=== PATIENT | female | born 1970 | race Caucasian/White ===

== ENCOUNTER → 2016-10-31 | Outpatient (CLI) | payer BC ==
--- NOTE | 2016-10-31 14:33 | MM ---
Reason for exam: screening (asymptomatic). Last mammogram was performed 1 year ago. History: Patient is postmenopausal and had first child at age 34. Taking estrogen beginning at age 39. Physical Findings: A clinical breast exam by your physician is recommended on an annual basis and results should be correlated with mammographic findings. MG Screening Mammo w CAD Bilateral CC and MLO view(s) were taken. Prior study comparison: October 29, 2015, bilateral MG screening mammo w CAD. October 01, 2014, right breast US breast RT. October 25, 2013, bilateral digital screening mammo w/CAD. The breast tissue is heterogeneously dense. This may lower the sensitivity of mammography. Finding: There is a 11 mm obscured round mass in the middle upper inner quadrant, anterior position of the left breast. There is a questionable new nodularity in the left breast. Developing asymmetry right posterior upper outer quadrant. ASSESSMENT: Incomplete: need additional imaging evaluation, BI-RAD 0 RECOMMENDATION: Special view mammogram of the right breast. Ultrasound of the left breast. [facility] will attempt to contact patient to return for supplemental views and ultrasound.
== END | disposition home or self-care (01) ==
LOC: RADMAMWWP 11:33
PROVIDERS: ATTEND Obstetrics & Gynecology
DX: Z12.31 Encounter for screening mammogram for malignant neoplasm of breast (principal); R92.2 Inconclusive mammogram

== ENCOUNTER → 2016-11-02 | Outpatient (CLI) | payer BC ==
--- NOTE | 2016-11-02 09:26 | MM ---
Reason for exam: additional evaluation requested from abnormal screening. Last mammogram was performed less than 1 month ago. History: Patient is postmenopausal and had first child at age 34. Taking estrogen beginning at age 39. Physical Findings: Nurse did not find any significant physical abnormalities on exam. MG Work Up Mamm w CAD RT CC and MLO view(s) were taken of the right breast. Prior study comparison: October 31, 2016, bilateral MG screening mammo w CAD. October 29, 2015, bilateral MG screening mammo w CAD. The breast tissue is heterogeneously dense. This may lower the sensitivity of mammography. Finding: There is a high density, indistinct round mass in the outer quadrant, anterior position of the right breast consistent with possible cyst on ultrasound. There is no discrete abnormality on compression upper outer quadrant. Ultrasound is recommended. These results were verbally communicated with the patient and result sheet given to the patient on 11/02/16. ASSESSMENT: Probably benign, BI-RAD 3 RECOMMENDATION: Follow-up diagnostic mammogram of the right breast in 6 months.
--- NOTE | 2016-11-02 09:28 | USB ---
Reason for exam: additional evaluation requested from abnormal screening. History: Patient is postmenopausal and had first child at age 34. Taking estrogen beginning at age 39. US Breast Workup Limited LT Left breast ultrasound demonstrates a 0.8 x 0.9 x 0.4cm oval, cystic lesion at 10 o'clock. These results were verbally communicated with the patient and result sheet given to the patient on 11/02/16. ASSESSMENT: Benign, BI-RAD 2 RECOMMENDATION: Follow-up diagnostic mammogram in 6 months. (right breast)
== END ==
LOC: RADMAMWWP 08:04
PROVIDERS: ATTEND Obstetrics & Gynecology
DX: R92.8 Other abnormal and inconclusive findings on diagnostic imaging of breast (principal)
CPT/HCPCS: 76642; G0206

== ENCOUNTER → 2017-11-17 | Outpatient (CLI) | payer BC ==
[2017-11-17 07:22] LABS: Basophils % (A) 0 %; Eosinophils # (A) 0.4 k/uL (0-0.7); Eosinophils % (A) 5 %; HCT 45.6 % (34.0-46.0); HGB 15.3 gm/dL (11.4-16.0); Lymphocytes # (A) 2.2 k/uL (1.0-4.8); Lymphocytes % (A) 30 %; MCH 29.2 pg (25.0-35.0); MCHC 33.6 g/dL (31.0-37.0); MCV 86.8 fL (80.0-100.0); Mean Platelet Volume 6.7; Monocytes # (A) 0.3 k/uL (0-1.0); Monocytes % (A) 5 %; Neutrophils # (A) 4.2 k/uL (1.3-7.7); Neutrophils % (A) 59 %; Platelet Count 326 k/uL (150-450); RBC 5.25 m/uL (3.80-5.40); RDW 13.2 % (11.5-15.5); WBC 7.2 k/uL (3.8-10.6)
[2017-11-17 07:48] LABS: ALT 32 U/L (9-52); AST 20 U/L (14-36); Albumin 4.5 g/dL (3.5-5.0); Alkaline Phosphatase 70 U/L (38-126); Anion Gap 15 mmol/L; Blood Urea Nitrogen 12 mg/dL (7-17); Calcium 9.5 mg/dL (8.4-10.2); Carbon Dioxide 26 mmol/L (22-30); Chloride 102 mmol/L (98-107); Cholesterol 245 mg/dL (<200); Glucose 105 mg/dL (74-99); HDL Cholesterol 53 mg/dL (40-60); LDL Cholesterol,Calculated 173 mg/dL (0-99); Potassium 3.9 mmol/L (3.5-5.1); Sodium 143 mmol/L (137-145); Total Bilirubin 0.4 mg/dL (0.2-1.3); Total Protein 7.9 g/dL (6.3-8.2); Triglycerides 93 mg/dL (<150)
== END | disposition home or self-care (01) ==
LOC: LABWHC1 07:09
PROVIDERS: ATTEND Family Medicine
DX: Z00.00 Encounter for general adult medical examination without abnormal findings (principal)
CPT/HCPCS: 36415; 80053; 80061; 84443; 85025

== ENCOUNTER → 2017-12-11 | Outpatient (CLI) | payer BC ==
--- NOTE | 2017-12-12 11:23 | MM ---
Reason for exam: screening (asymptomatic). Last mammogram was performed 7 months ago. History: Patient is postmenopausal and had first child at age 34. Taking estrogen for 6 years beginning at age 39. Taking other hormone for 6 months. Physical Findings: A clinical breast exam by your physician is recommended on an annual basis and results should be correlated with mammographic findings. MG Screening Mammo w CAD Bilateral CC and MLO view(s) were taken. Prior study comparison: May 09, 2017, right breast MG diagnostic mammo RT w CAD. November 02, 2016, right breast MG work up mamm w CAD RT. The breast tissue is heterogeneously dense. This may lower the sensitivity of mammography. No significant changes when compared with prior studies. ASSESSMENT: Benign, BI-RAD 2 RECOMMENDATION: Routine screening mammogram of both breasts in 1 year.
== END | disposition home or self-care (01) ==
LOC: RADMAMWWP 06:57
PROVIDERS: ATTEND Obstetrics & Gynecology
DX: Z12.31 Encounter for screening mammogram for malignant neoplasm of breast (principal)
CPT/HCPCS: 77067

== ENCOUNTER → 2018-12-12 | Outpatient (CLI) | payer BC ==
--- NOTE | 2018-12-14 14:33 | MM ---
Reason for exam: screening (asymptomatic). Last mammogram was performed 1 year ago. History: Patient is postmenopausal and had first child at age 34. Taking estrogen for 9 years beginning at age 39. Taking other hormone for 6 months. Physical Findings: A clinical breast exam by your physician is recommended on an annual basis and results should be correlated with mammographic findings. MG 3D Screening Mammo W/Cad Bilateral CC and MLO view(s) were taken. Prior study comparison: December 11, 2017, bilateral MG screening mammo w CAD. May 09, 2017, right breast MG diagnostic mammo RT w CAD. The breast tissue is extremely dense which could obscure a lesion on mammography. No significant changes when compared with prior studies. ASSESSMENT: Benign, BI-RAD 2 RECOMMENDATION: Routine screening mammogram of both breasts in 1 year.
== END | disposition home or self-care (01) ==
LOC: RADMAMWWP 14:59
PROVIDERS: ATTEND Obstetrics & Gynecology
DX: Z12.31 Encounter for screening mammogram for malignant neoplasm of breast (principal)
CPT/HCPCS: 77063; 77067

== ENCOUNTER 2019-06-03 11:33 | Observation (INO) | payer BC ==
--- NOTE | 2019-06-03 12:08 | ED ---
General Adult HPI - General Chief complaint: Chest Pain Stated complaint: chest pain/SOB/neck pain Time Seen by Provider: 06/03/19 11:40 Source: patient, RN notes reviewed, old records reviewed Mode of arrival: ambulatory Limitations: no limitations - History of Present Illness Initial comments: This a 48 her old female presents emergency Department complaining of left-sided chest pain that radiates to her neck and back. Patient states it also makes her short of breath. Patient states the pain started approximately an hour and half prior to arrival. Patient states she has no previous history of similar. Patient denies any history of high blood pressure diabetes or high cholesterol. Patient denies any smoking history. Patient states she does have a family history of heart disease with her father having a heart attack in his 50s. Patient states the pain started while she was just getting ready for work and she was under no distress or significant effort. Patient denies any leg swelling or calf tenderness. Patient denies abdominal pain patient is not vomiting diarrhea. - Related Data Home Medications Medication Instructions Recorded Confirmed Bio Te Pellets 1 implant SQ Q120D 06/03/19 06/03/19 Loratadine [Claritin] 10 mg PO HS 06/03/19 06/03/19 Progesterone, Micronized 100 mg PO HS 06/03/19 06/03/19 [Progesterone] Thyroid,Pork [Cavity Pump Operator Thyroid] 60 mg PO DAILY 06/03/19 06/03/19 Triamterene/Hydrochlorothiazid 0.5 tab PO HS 06/03/19 06/03/19 [Triamterene-Hctz 37.5-25 mg Tb] Allergies Allergy/AdvReac Type Severity Reaction Status Date / Time Sulfa (Sulfonamide Allergy Rash/Hives Verified 06/03/19 12:21 Antibiotics) tree nut Allergy Itching Verified 06/03/19 12:26 gluten AdvReac GI UPSET Verified 06/03/19 12:26 ALL SEAFOOD Allergy Itching Uncoded 06/03/19 12:26 FRUIT WITH CHAN Allergy Itching Uncoded 06/03/19 12:26 Review of Systems ROS Statement: Those systems with pertinent positive or pertinent negative responses have been documented in the HPI. ROS Other: All systems not noted in ROS Statement are negative. Past Medical History Additional Past Medical History / Comment(s): horomone replacemnt History of Any Multi-Drug Resistant Organisms: None Reported Past Surgical History: Appendectomy, Hysterectomy Past Psychological History: No Psychological Hx Reported Smoking Status: Never smoker Past Alcohol Use History: None Reported Past Drug Use History: None Reported General Exam - General Exam Comments Initial Comments: GENERAL: Patient is well-developed and well-nourished. Patient is nontoxic and well- hydrated and is in mild distress. ENT: Neck is soft and supple. No significant lymphadenopathy is noted. Oropharynx is clear. Moist mucous membranes. Neck has full range of motion without eliciting any pain. EYES: The sclera were anicteric and conjunctiva were pink and moist. Extraocular movements were intact and pupils were equal round and reactive to light. Eyeli ds were unremarkable. PULMONARY: Unlabored respirations. Good breath sounds bilaterally. No audible rales rhonchi or wheezing was noted. CARDIOVASCULAR: There is a regular rate and rhythm without any murmurs gallops or rubs. ABDOMEN: Soft and nontender with normal bowel sounds. No palpable organomegaly was noted. There is no palpable pulsatile mass. SKIN: Skin is clear with no lesions or rashes and otherwise unremarkable. NEUROLOGIC: Patient is alert and oriented x3. Cranial nerves II through XII are grossly intact. Motor and sensory are also intact. Normal speech, volume and content. Symmetrical smile. MUSCULOSKELETAL: Normal extremities with adequate strength and full range of motion. No lower extremity swelling or edema. No calf tenderness. LYMPHATICS: No significant lymphadenopathy is noted PSYCHIATRIC: Normal psychiatric evaluation. Limitations: no limitations Course Vital Signs 06/03/19 11:38 Temperature 98 F Pulse Rate 74 Respiratory 18 Rate Blood Pressure 144/77 O2 Sat by Pulse 99 Oximetry Medical Decision Making - Medical Decision Making EKG shows normal sinus rhythm at 77 bpm MA interval is 138 QRS is 82 QT interval 386 QTC is 436. Patient's EKG shows no ST segment elevation or depression or T wave abnormalities are noted. The. Chest x-ray shows no acute abnormalities. Patient received nitroglycerin paste and when she did the pain went away. I started the patient heparin because of her unstable angina picture. I spoke with [facility] is admitted the patient I consulted cardiac to continue heparin aspirin and Nitropaste on the floor. - Lab Data Result diagrams: 06/03/19 11:50 06/03/19 11:50 Lab Results 06/03/19 06/03/19 06/03/19 Range/Units 11:50 11:50 11:50 WBC 7.9 (3.8-10.6) k/uL RBC 5.27 (3.80-5.40) m/uL Hgb 15.6 (11.4-16.0) gm/dL Hct 46.4 H (34.0-46.0) % MCV 88.0 (80.0-100.0) fL MCH 29.6 (25.0-35.0) pg MCHC 33.7 (31.0-37.0) g/dL RDW 12.4 (11.5-15.5) % Plt Count 390 (150-450) k/uL Neutrophils % 59 % Lymphocytes % 30 % Monocytes % 5 % Eosinophils % 3 % Basophils % 1 % Neutrophils # 4.7 (1.3-7.7) k/uL Lymphocytes # 2.3 (1.0-4.8) k/uL Monocytes # 0.4 (0-1.0) k/uL Eosinophils # 0.3 (0-0.7) k/uL Basophils # 0.0 (0-0.2) k/uL PT 10.0 (9.0-12.0) sec INR 0.9 (<1.2) APTT 25.0 (22.0-30.0) sec Sodium 142 (137-145) mmol/L Potassium 4.0 (3.5-5.1) mmol/L Chloride 105 (98-107) mmol/L Carbon Dioxide 26 (22-30) mmol/L Anion Gap 11 mmol/L BUN 11 (7-17) mg/dL Creatinine 0.80 (0.52-1.04) mg/dL Est GFR (CKD-EPI)AfAm >90 (>60 ml/min/1.73 sqM) Est GFR (CKD-EPI)NonAf 89 (>60 ml/min/1.73 sqM) Glucose 98 (74-99) mg/dL POC Glucose (mg/dL) (75-99) mg/dL POC Glu Environmental Communications Specialist ID Calcium 10.0 (8.4-10.2) mg/dL Magnesium 2.0 (1.6-2.3) mg/dL Total Bilirubin 0.4 (0.2-1.3) mg/dL AST 22 (14-36) U/L ALT 25 (9-52) U/L Alkaline Phosphatase 86 (38-126) U/L Troponin I (0.000-0.034) ng/mL Total Protein 8.3 H (6.3-8.2) g/dL Albumin 4.5 (3.5-5.0) g/dL 06/03/19 06/03/19 Range/Units 11:50 13:12 WBC (3.8-10.6) k/uL RBC (3.80-5.40) m/uL Hgb (11.4-16.0) gm/dL Hct (34.0-46.0) % MCV (80.0-100.0) fL MCH (25.0-35.0) pg MCHC (31.0-37.0) g/dL RDW (11.5-15.5) % Plt Count (150-450) k/uL Neutrophils % % Lymphocytes % % Monocytes % % Eosinophils % % Basophils % % Neutrophils # (1.3-7.7) k/uL Lymphocytes # (1.0-4.8) k/uL Monocytes # (0-1.0) k/uL Eosinophils # (0-0.7) k/uL Basophils # (0-0.2) k/uL PT (9.0-12.0) sec INR (<1.2) APTT (22.0-30.0) sec Sodium (137-145) mmol/L Potassium (3.5-5.1) mmol/L Chloride (98-107) mmol/L Carbon Dioxide (22-30) mmol/L Anion Gap mmol/L BUN (7-17) mg/dL Creatinine (0.52-1.04) mg/dL Est GFR (CKD-EPI)AfAm (>60 ml/min/1.73 sqM) Est GFR (CKD-EPI)NonAf (>60 ml/min/1.73 sqM) Glucose (74-99) mg/dL POC Glucose (mg/dL) 87 (75-99) mg/dL POC Glu Environmental Communications Specialist MARTA Dianne Singh Calcium (8.4-10.2) mg/dL Magnesium (1.6-2.3) mg/dL Total Bilirubin (0.2-1.3) mg/dL AST (14-36) U/L ALT (9-52) U/L Alkaline Phosphatase (38-126) U/L Troponin I <0.012 (0.000-0.034) ng/mL Total Protein (6.3-8.2) g/dL Albumin (3.5-5.0) g/dL Critical Care Time Critical Care Time: Yes Total Critical Care Time: 35 Disposition Clinical Impression: Unstable angina pectoris Disposition: ADMITTED IP TO THIS HOSP Referrals: Scarlett Braxton MD [Primary Care Provider] - 1-2 days Time of Disposition: 13:37
[2019-06-03] MEDS ORDERED: NITROGLYCERIN OINT 1 INCH/GM PACKET TOPICAL STA (12:17)
[2019-06-03] MEDS ORDERED: ASPIRIN 81 MG PO STA (12:17)
[2019-06-03 12:40] LABS: Basophils % (A) 1 %; Eosinophils # (A) 0.3 k/uL (0-0.7); Eosinophils % (A) 3 %; HCT 46.4 % (34.0-46.0); HGB 15.6 gm/dL (11.4-16.0); Lymphocytes # (A) 2.3 k/uL (1.0-4.8); Lymphocytes % (A) 30 %; MCH 29.6 pg (25.0-35.0); MCHC 33.7 g/dL (31.0-37.0); Mean Platelet Volume 5.7; Monocytes # (A) 0.4 k/uL (0-1.0); Monocytes % (A) 5 %; Neutrophils # (A) 4.7 k/uL (1.3-7.7); Neutrophils % (A) 59 %; Platelet Count 390 k/uL (150-450); RBC 5.27 m/uL (3.80-5.40); RDW 12.4 % (11.5-15.5); WBC 7.9 k/uL (3.8-10.6)
[2019-06-03 12:53] LABS: ALT 25 U/L (9-52); AST 22 U/L (14-36); African American GFR (CKD) >90 (>60 ml/min/1.73 sqM); Albumin 4.5 g/dL (3.5-5.0); Alkaline Phosphatase 86 U/L (38-126); Anion Gap 11 mmol/L; Blood Urea Nitrogen 11 mg/dL (7-17); Carbon Dioxide 26 mmol/L (22-30); Chloride 105 mmol/L (98-107); Glucose 98 mg/dL (74-99); INR 0.9 (<1.2); Non-African American GFR(CKD) 89 (>60 ml/min/1.73 sqM); Sodium 142 mmol/L (137-145); Total Bilirubin 0.4 mg/dL (0.2-1.3); Total Protein 8.3 g/dL (6.3-8.2)
[2019-06-03 13:13] LABS: Glucose,Whole Blood 87 mg/dL (75-99)
--- NOTE | 2019-06-03 13:22 | XR ---
EXAMINATION TYPE: XR chest 2V DATE OF EXAM: 06/03/2019 COMPARISON: NONE HISTORY: Chest pain TECHNIQUE: Frontal and lateral views of the chest are obtained. FINDINGS: There is no focal air space opacity. No evidence for pneumothorax. No pleural effusion. The cardiac silhouette size is within normal limits. The osseous structures are grossly intact. IMPRESSION: 1. No acute cardiopulmonary process.
[2019-06-03] MEDS ORDERED: HEPARIN SODIUM,PORCINE 5,000 UNIT/ML 1 ML VIAL IV ONE (13:35)
[2019-06-03] MEDS ORDERED: NITROGLYCERIN SL TABS 0.4 MG TAB SUBLINGUAL PRN (13:37)
[2019-06-03] MEDS ORDERED: HEPARIN SOD,PORK IN 0.45% NACL 25,000 UNIT in 0.45% NACL 1 250ML.BAG IV SCH (13:45)
[2019-06-03 14:08] VITALS: RESP 16
--- NOTE | 2019-06-03 15:32 | CONS ---
CONSULTATION Mrs. Sapp is a 48-year-old female with a family history of premature coronary disease who presented with symptoms of chest discomfort. Her discomfort started today with some radiation to the neck and to the arm and she was mildly dyspneic. As the discomfort persisted for about an hour, she did not have any associated respirophasic pattern to it. She came into the emergency room and subsequently admitted. At the time my evaluation, she is pain free. She is usually relatively active physically, has no significant chest discomfort. No significant dyspnea, dizziness or palpitation. She has no PND, orthopnea. She has mild peripheral edema related to her hormone replacement. She has a family history of coronary artery disease. No history of hypertension, hyperlipidemia, or diabetes. She is a nonsmoker. MEDICATION: At home included Dyazide, thyroid supplement, progesterone, Claritin. REVIEW OF SYSTEMS: RESPIRATORY SYSTEM: She has no documented history of recent wheezing or cough. She had a prior history of allergic asthma. GI SYSTEM: No recent GI bleed. No peptic ulcer disease. SYSTEM: No dysuria or hematuria. NERVOUS SYSTEM: No stroke or seizure. PHYSICAL EXAMINATION: She is a 48-year-old female, alert, oriented, in no apparent distress. Blood pressure 114/60 with a heart rate in the 70s. HEAD: Normocephalic. EYES: Sclerae nonicteric. NECK: Good upstroke, no bruit, no jugular venous distention. CHEST: Clear to auscultation. HEART: Regular rate and rhythm S1, S2. No S3. No S4. No murmur or rub. ABDOMEN: Soft, nontender, positive bowel sounds, no organomegaly. EXTREMITIES: No edema, intact distal pulses. LAB DATA: Lab data revealed the troponin less than 0.012 for 1 sample. BUN and creatinine of 11 and 0.8, potassium 4.0, hemoglobin of 15.6. EKG revealed a sinus mechanism, normal axis and intervals, normal electrocardiogram. IMPRESSION: 1. Chest discomfort of unclear etiology, has some atypical features for ischemic heart disease. No evidence for acute coronary syndrome so far. 2. Family history of premature coronary artery disease. RECOMMENDATION: I will obtain serial enzymes and an echocardiogram. There is no evidence of inducible ischemia. Will proceed with a stress test tomorrow. Otherwise, if there is enzymatic changes or persistent symptoms, coronary angiography will be needed. Those final recommendation were discussed with the patient and her who are in full understanding and agreement. Thank you for this consult. Will follow with you. MMODL / IJN: [id number] /
[2019-06-03] MEDS: NITROGLYCERIN OINT 1 INCH/GM PACKET TOPICAL SCH ×2 (16:52→23:00)
[2019-06-03] MEDS ORDERED: ACETAMINOPHEN TAB 325 MG TAB PO PRN (19:49)
--- NOTE | 2019-06-03 20:41 | HP ---
HISTORY AND PHYSICAL DATE OF SERVICE: 06/03/2019. CHIEF COMPLAINT: Chest pain. HISTORY OF PRESENT ILLNESS: This 48-year-old woman with a past medical history of , history of appendectomy, being followed by Dr. Braxtno in the outpatient setting. The patient has had chest pain. The pain is felt in the left side of the chest, history of radiating to the left shoulder and left neck. Patient came to [facility]. The pain was mild to moderate intensity associated with shortness of breath. There is not any other associated symptoms or aggravating or alleviating factors. The EKG showed some nonspecific ST-T changes and the troponins are negative. Patient was admitted to the hospital for further evaluation and treatment. Cardiology following the patient closely and planning possible stress test in the morning. There is no history of fever, rigors or chills. No history of headache, loss of consciousness, or seizures. PAST MEDICAL HISTORY: History of hormone replacement, history of appendectomy, hysterectomy. MEDICATIONS: Prior to admission include home medications are: 1. Triamterene hydrochlorothiazide 37/12.5 mg q.h.s. 2. Thyroid pork. 3. Micronized progesterone. 4. Claritin 10 mg p.o. daily. ALLERGIES: SULFA, TREE NUTS, GLUTEN, ALL SEAFOOD, FOODS WITH PITS. FAMILY HISTORY: History of diabetes and myocardial infarction, testicular cancer. SOCIAL HISTORY: No history of smoking. No history of alcohol. REVIEW OF SYSTEMS: ENT: No diminished vision. No diminished hearing. CARDIOVASCULAR system as mentioned earlier. RESPIRATORY: As mentioned earlier. GI no nausea or vomiting. no dysuria or hematuria. NERVOUS SYSTEMS: No numbness or weakness. ALLERGIES/IMMUNOLOGY: No asthma or hayfever. MUSCULOSKELETAL as mentioned earlier. HEMATOLOGY/ONCOLOGY: No history of anemia. ENDOCRINE: Hypothyroidism. CONSTITUTIONAL: As mentioned earlier. DERMATOLOGY: Negative. RHEUMATOLOGY negative. PSYCHIATRY as mentioned. PHYSICAL EXAMINATION: Alert and oriented times three. Pulse 73, blood pressure 111/64. Respirations 16. Temperature 98 degrees, pulse ox 97% on room air. HEENT: Conjunctivae normal. Oral mucosa moist. NECK is no jugular venous distention. No carotid bruit. No lymph node enlargement. Cardiovascular system: S1, S2. No S3, no S4. RESPIRATIONS: Breath sounds diminished in the bases. No rhonchi. No crackles. ABDOMEN: Soft, nontender. No mass palpable. LEGS: No edema. No swelling. NERVOUS SYSTEM: Higher functions as mentioned earlier. Moves all four limbs. No focal motor or sensory deficits. LYMPHATICS: No lymph nodes palpable in the neck, axillae or groin. SKIN: No ulcers, rash or bleeding. JOINTS: No active deforming arthropathy. LABS: CBC within normal limits and CMP showed protein of 8.3. ASSESSMENT: 1. Chest pain for evaluation, possible unstable angina. 2. Family history of coronary disease. 3. History of appendectomy. 4. History of hysterectomy. RECOMMENDATIONS DISCUSSION: In this 48-year-old woman who presented with multiple medical issues, at this time, I recommend to continue the current medications. Rule out myocardial infarction/unstable angina protocol. Otherwise, cardiac stress test. Follow closely with Cardiology. We will check a fasting lipid panel also. Prognosis guarded because of multiple complex medical issues. Further recommendations to follow. A copy of dictation being forwarded to Dr. Braxton who is the primary physician. MMCLEOL / IJN: [id number] / MARY
[2019-06-03] MEDS ORDERED: LORATADINE 10 MG TAB PO SCH (21:00)
[2019-06-03] MEDS ORDERED: TRIAMTERENE-HCTZ 37.5-25MG 1 EACH TAB PO SCH (21:00)
[2019-06-04] MEDS ORDERED: ACETAMINOPHEN TAB 325 MG TAB ONE (03:21)
[2019-06-04] MEDS: NITROGLYCERIN OINT 1 INCH/GM PACKET TOPICAL SCH (05:37)
[2019-06-04 07:15] LABS: Cholesterol 215 mg/dL (<200); HDL Cholesterol 48 mg/dL (40-60); LDL Cholesterol,Calculated 143 mg/dL (0-99); Triglycerides 121 mg/dL (<150)
--- NOTE | 2019-06-04 08:40 | PN ---
PROGRESS NOTE Mrs. Sapp is a 48-year-old female with no prior cardiac history who presented with symptoms of chest discomfort of unclear etiology. She is doing well this morning. She has no further chest pain. Her breathing is stable. She has been ambulating without difficulty. Denying any dizziness. No palpitation. She denies any nausea. On the monitor, she continues to be in sinus mechanism with no evidence of tachycardia or bradycardia. She continued to be on aspirin, heparin and nitrate. PHYSICAL EXAMINATION: Blood pressure running in the 90s with the heart rate in the 70s. LUNGS: Clear. HEART: Regular rate and rhythm. S1, S2. No S3. No rub. ABDOMEN: Soft, nontender. Positive bowel sounds. No organomegaly. EXTREMITIES: No edema. LAB DATA: Lab data revealed a troponin less than 0.012 for 3 samples. EKG revealed no acute changes. IMPRESSION: Chest discomfort of unclear etiology, has atypical features for ischemic heart disease. RECOMMENDATION: I will stop her IV heparin and her nitrate. Proceed with a stress echocardiogram today. If there is no evidence of stress-induced ischemia, then no further cardiac workup will be needed. MMODL / IJN: [id number] /
--- NOTE | 2019-06-04 08:55 | ECHOF ---
Referral Reason:chest pain MEASUREMENTS -------- HEIGHT: 165.1 cm WEIGHT: 89.8 kg BP: RVIDd: 3.1 cm (< 3.3) IVSd: 0.8 cm (0.6 - 1.1) LVIDd: 4.1 cm (3.9 - 5.3) LVPWd: 1.0 cm (0.6 - 1.1) IVSs: 1.5 cm LVIDs: 2.3 cm LVPWs: 1.6 cm LAESV Index (A-L): 7.84 ml/m Ao Diam: 2.5 cm (2.0 - 3.7) AV Cusp: 1.6 cm (1.5 - 2.6) LA Diam: 2.6 cm (2.7 - 3.8) MV EXCURSION: 12.039 mm (> 18.000) MV EF SLOPE: 72 mm/s (70 - 150) EPSS: 0.6 cm MV E Dave: 0.66 m/s MV DecT: 296 ms MV A Dave: 0.71 m/s MV E/A Ratio: 0.92 FINDINGS -------- Sinus rhythm. This was a technically good study. The left ventricular size is normal. There is borderline concentric left ventricular hypertrophy. Overall left ventricular systolic function is normal with, an EF between 55 - 60 %. The diastolic filling pattern is normal for the age of the patient 7.74. The right ventricle is normal in size. The left atrial size is normal. Normal LA size by volume 22+/-6 ml/m2. The right atrial size is normal. The aortic valve is trileaflet and appears structurally normal. The mitral valve is normal. There is trace mitral regurgitation. The tricuspid valve appears structurally normal. Trace tricuspid regurgitation present. Right jessie tricular systolic pressure is normal at < 35 mmHg. There is no pulmonic regurgitation present. The aortic root size is normal. Normal inferior vena cava with normal inspiratory collapse consistent with estimated right atrial pre ssure of 5 mmHg. There is no pericardial effusion. CONCLUSIONS -------- 1. Sinus rhythm. 2. This was a technically good study. 3. The left ventricular size is normal. 4. There is borderline concentric left ventricular hypertrophy. 5. Overall left ventricular systolic function is normal with, an EF between 55 - 60 %. 6. The diastolic filling pattern is normal for the age of the patient 7.74 7. The right ventricle is normal in size. 8. The left atrial size is normal. 9. Normal LA size by volume 22+/-6 ml/m2. 10. The right atrial size is normal. 11. The aortic valve is trileaflet and appears structurally normal. 12. The mitral valve is normal. 13. There is trace mitral regurgitation. 14. The tricuspid valve appears structurally normal. 15. Trace tricuspid regurgitation present. 16. Right ventricular systolic pressure is normal at < 35 mmHg. 17. There is no pulmonic regurgitation present. 18. The aortic root size is normal. 19. Normal inferior vena cava with normal inspiratory collapse consistent with estimated right atrial pressure of 5 mmHg. 20. There is no pericardial effusion. VP OF GLOBAL MARKETING: Coty Meneses RDCS
[2019-06-04] MEDS ORDERED: ASPIRIN 81 MG PO SCH (09:00)
[2019-06-04] MEDS ORDERED: ASPIRIN 325 MG TAB PO SCH (09:00)
[2019-06-04] MEDS ORDERED: THYROID, PORK 30 MG TAB PO SCH (09:00)
[2019-06-04 10:32] LABS: Glucose,Whole Blood 89 mg/dL (75-99)
[2019-06-04] MEDS ORDERED: SODIUM CHLORIDE IV SCH (10:45)
[2019-06-04] MEDS ORDERED: DEXTROSE IV SCH (10:45)
[2019-06-04] MEDS ORDERED: WATER IV SCH (10:45)
[2019-06-04 11:00] VITALS: BP 124/80; PULSE 71; TEMP 98.2
[2019-06-04] MEDS ORDERED: DEXTROSE 10 % IN WATER 250 ML IV ONE (11:00)
--- NOTE | 2019-06-04 18:25 | ECHOS ---
STRESS ECHOCARDIOGRAM INDICATIONS: Chest pain. MEDICATIONS: HRT, ATHLETIC EVENTS SCORER thyroid BASELINE HEART RATE: 72 BASELINE BLOOD PRESSURE: 131/88 MAXIMUM HEART RATE: 160 MAXIMUM BLOOD PRESSURE: 188/82 85% MPHR: 148 100% MPHR: 174 METS: 9.3 MAXIMUM STAGE REACHED: II TOTAL EXERCISE TIME: 7:50 CLINICAL INFORMATION: Baseline EKG shows sinus rhythm, normal axis, nonspecific ST-T wave changes. Patient exercised on Vu protocol for a total of 7 minutes and 50 seconds, achieving 9 METS, 92% of predicted maximal heart rate without chest pain or diagnostic ST-segment depression. Baseline echo shows normal left ventricular size, wall motion, systolic function. Post exercise there is normal hyperdynamic response of all segments of myocardium noted. CONCLUSIONS: 1. Above-average exercise tolerance. 2. Negative stress test by EKG criteria. 3. Negative stress echo. ELIASL / IJN: [id number] /
--- NOTE | 2019-06-04 21:31 | DS ---
DISCHARGE SUMMARY DATE OF SERVICE: 06/04/2019. FINAL DIAGNOSES: 1. Chest pain, possibly musculoskeletal. 2. Family history of coronary artery disease. 3. Hyperlipidemia. 4. History of appendectomy. 5. History of hysterectomy. DISCHARGE DISPOSITION: The patient is being discharged in stable condition with guarded prognosis. HISTORY OF PRESENT ILLNESS: This 48-year-old woman with a past medical history of multiple medical problems being followed by Dr. Braxton in the outpatient setting was admitted with chest pain. Myocardial infarction ruled out. Patient underwent a stress test which was reported as negative. Official report is pending at this time and Cardiology cleared the patient for discharge. A 2D echo with Doppler was also done which showed ejection fraction about 50-60 percent. The patient also had hyperlipidemia. Recommend the patient on a low-fat diet cardiac diet and repeat lipid panel testing with Dr. Braxton and if the cholesterol is still high, initiate possibly combination of Lipitor and baby aspirin. The cholesterol is fasting cholesterol 215 and LDL was 143 with triglycerides 121 and HDL 48. On exam, vitals signs are stable. Cardiovascular: S1, S2. Abdomen soft. Nervous system: No focal deficits. DISCHARGE ADVICE AND MEDICATIONS: 1. Discharge diet is cardiac low-fat. 2. Activity limited until follow up. 3. Follow up with Dr. Hamm as advised. 4. Follow up with Dr. Braxton in 2-3 days. DISCHARGE MEDICATIONS: 1. Claritin 10 mg q.h.s. 2. Thyroid pork 60 mg p.o. daily. 3. Progesterone 100 mg q.h.s. 4. Triamterene hydrochlorothiazide 1.5 mg q.h.s. 5. Tylenol 650 q.6h p.r.n. Once again, the patient is being discharged in a stable condition with guarded prognosis. Recommend follow up with thyroid function tests in the outpatient setting. MMODL / IJN: [id number] /
== END 2019-06-04 14:48 | disposition home or self-care (01) ==
LOC: EC 11:33 → 3SCARD 13:37
PROVIDERS: ADMIT Hospitalist; ATTEND Hospitalist
DX: I20.0 Unstable angina (principal); Z82.49 Family history of ischemic heart disease and other diseases of the circulatory system; E78.5 Hyperlipidemia, unspecified; Z83.3 Family history of diabetes mellitus; Z80.43 Family history of malignant neoplasm of testis; Z90.710 Acquired absence of both cervix and uterus; Z79.890 Hormone replacement therapy; Z79.899 Other long term (current) drug therapy; Z91.018 Allergy to other foods; Z91.013 Allergy to seafood; Z88.2 Allergy status to sulfonamides
CPT/HCPCS: 96366 ×2; 93005 ×2; 96376; 96365; 99291; 36415; 93306; 93351; 80061; 80053; 83735; 84484; 85025; 85610; 85730 ×2; 71046; G0378 ×2; J1644 ×2

== ENCOUNTER → 2020-01-16 | Outpatient (CLI) | payer BC ==
[2020-01-16 08:59] LABS: Basophils % (A) 1 %; Eosinophils # (A) 0.3 k/uL (0-0.7); Eosinophils % (A) 4 %; HCT 45.8 % (34.0-46.0); HGB 15.5 gm/dL (11.4-16.0); Lymphocytes # (A) 1.9 k/uL (1.0-4.8); Lymphocytes % (A) 25 %; MCH 30.1 pg (25.0-35.0); MCV 88.7 fL (80.0-100.0); Mean Platelet Volume 6.7; Monocytes # (A) 0.3 k/uL (0-1.0); Monocytes % (A) 4 %; Neutrophils % (A) 65 %; Platelet Count 316 k/uL (150-450); RBC 5.16 m/uL (3.80-5.40); RDW 13.7 % (11.5-15.5); WBC 7.7 k/uL (3.8-10.6)
[2020-01-16 16:49] LABS: African American GFR (CKD) 88.2 (60.0-200.0); Albumin 4.3 g/dL (3.80-4.90); Albumin/Globulin Ratio 1.48 (1.60-3.17); Anion Gap 7.9 mmol/L (4.00-12.00); BUN/Creat Ratio 15.56 Ratio (12.00-20.00); Calcium 9.2 mg/dL (8.7-10.3); Carbon Dioxide 28.1 mmol/L (21.6-31.8); Chol/HDL Ratio 4.24; Globulin 2.9 g/dL (1.6-3.3); LDL Cholesterol,Calculated 164.4 mg/dL (0.0-131.0); Non-African American GFR(CKD) 76.1 (60.0-200.0); Total Bilirubin 0.4 mg/dL (0.3-1.2); Total Protein 7.2 g/dL (6.2-8.2); VLDL Calculation 23.6 mg/dL (5.00-40.00)
== END | disposition home or self-care (01) ==
LOC: LABWHC1 07:25
PROVIDERS: ATTEND Family Medicine
DX: E78.5 Hyperlipidemia, unspecified (principal)
CPT/HCPCS: 36415; 80053; 80061; 84443; 85025

== ENCOUNTER → 2020-01-16 | Outpatient (CLI) | payer BC ==
--- NOTE | 2020-01-17 08:56 | MM ---
Reason for exam: screening (asymptomatic). Last mammogram was performed 1 year and 1 month ago. History: Patient is postmenopausal and had first child at age 34. Taking estrogen for 9 years beginning at age 39. Taking other hormone for 6 months. Physical Findings: A clinical breast exam by your physician is recommended on an annual basis and results should be correlated with mammographic findings. MG 3D Screening Mammo W/Cad Bilateral CC and MLO view(s) were taken. Prior study comparison: December 12, 2018, bilateral MG 3d screening mammo w/cad. December 11, 2017, bilateral MG screening mammo w CAD. The breast tissue is heterogeneously dense. This may lower the sensitivity of mammography. A 7mm medial left breast nodule is circumscribed and previously measured 5mm. Indolent behavior and circumscribed margins suggests a benign etiology. ASSESSMENT: Probably benign, BI-RAD 3 RECOMMENDATION: Follow-up diagnostic mammogram of the left breast in 6 months.
== END | disposition home or self-care (01) ==
LOC: RADMAMWWP 07:03
PROVIDERS: ATTEND Obstetrics & Gynecology
DX: Z12.31 Encounter for screening mammogram for malignant neoplasm of breast (principal)
CPT/HCPCS: 77063; 77067

== ENCOUNTER → 2020-05-15 | Outpatient (CLI) | payer BC ==
--- NOTE | 2020-05-15 08:01 | US ---
EXAMINATION TYPE: US abdomen complete DATE OF EXAM: 05/15/2020 COMPARISON: NONE CLINICAL HISTORY: R10.11 Right upper quadrant pain. EXAM MEASUREMENTS: Liver Length: 16.6 cm Gallbladder Wall: .2 cm CBD: .5 cm Spleen: 10.5 cm Right Kidney: 10.9 x 3.5 x 4.4 cm Left Kidney: 11.1 x 4.3 x 4.6 cm Pancreas: wnl Liver: wnl liver is enlarged compatible with hepatomegaly. Gallbladder: No stones seen Evidence for sonographic Dukes's sign: No CBD: wnl Spleen: wnl Right Kidney: wnl Left Kidney: wnl Upper IVC: wnl Abd Aorta: wnl IMPRESSION: 1. Hepatomegaly. 2. Abdomen ultrasound is otherwise normal
== END | disposition home or self-care (01) ==
LOC: RADUSWWP 07:32
PROVIDERS: ATTEND Family Medicine
DX: R16.0 Hepatomegaly, not elsewhere classified (principal); R19.7 Diarrhea, unspecified
CPT/HCPCS: 76700; 83630; 87045; 87046; 87328; 87329

== ENCOUNTER → 2020-05-26 | Outpatient (CLI) | payer BC ==
--- NOTE | 2020-05-27 21:43 | CT ---
EXAMINATION TYPE: CT abdomen w con DATE OF EXAM: 05/26/2020 COMPARISON: 08/21/2012 INDICATION: Upper abdominal pain, diarrhea, abnormal blood work and hepatomegaly. DLP: 870.4 mGycm, Automated exposure control for dose reduction was used. CONTRAST: 100ml mL of Isovue 300. Study performed with Oral Contrast TECHNIQUE: Axial images were obtained from above the diaphragm to the iliac crests in the axial plane at 5 mm thick sections. Reconstructed images are reviewed on the computer in the coronal plane. FINDINGS: Limited CT sections are obtained the lung bases. The lung bases are clear. CT ABDOMEN: Liver: There is a 2.2 cm hypodensity with irregular margins in the lateral right lobe of liver. Serie s 3 image 18. This is poorly visualized on delayed images. This may be a hemangioma among other etiol ogies. This had a more typical appearance on the prior study hepatomegaly is present with a craniocau nancy dimension of 18.9 cm. Normal less than 15.5 cm. This may be partially due to a Chiki's lobe. Spleen: Normal Pancreas: Normal Adrenal glands: The adrenal glands are normal. Gallbladder: Normal Kidneys: No masses are evident. No hydronephrosis is present. No cysts are present. Delayed images were obtained through the kidneys, which remain unremarkable. Aorta: Normal Inferior vena cava: Normal. Loops of bowel within the abdomen and pelvis are normal. Some fecal debris is within the colon. Th ere are loops of bowel which are incompletely distended or lack oral contrast limiting their evaluati on. IMPRESSIONS: 1. Probable hemangioma within the right lobe liver. 2. Hepatomegaly
== END | disposition home or self-care (01) ==
LOC: RADCTMAIN 18:23
PROVIDERS: ATTEND Family Medicine
DX: R16.0 Hepatomegaly, not elsewhere classified (principal)
CPT/HCPCS: 74160; Q9967

== ENCOUNTER 2020-07-01 07:37 | Day surgery (SDC) | payer BC ==
[2020-06-29 15:07] VITALS: BMI 31.1
[~2020-07-01 07:37] MED LIST: DEXAMETHASONE SOD PHOSPHATE 4 MG/ML 1 ML VIAL IV ONE; HYDROmorphone 0.5 MG/0.5 ML SYRINGE IVP PRN; LACTATED RINGERS 1,000 ML IV SCH; LIDOCAINE 1% (10MG/ML) FOR IV START INTRADERMA PRN; MIDAZOLAM 2 MG/2 ML VIAL IV PRN
[2020-07-01] MEDS ORDERED: LACTATED RINGERS 1,000 ML IV ONE (07:55)
[2020-07-01 07:56] VITALS: TEMP 97.8
[2020-07-01 08:07] LABS: Glucose,Whole Blood 87 mg/dL (75-99)
[2020-07-01] MEDS ORDERED: MIDAZOLAM 2 MG/2 ML VIAL ONE (08:44)
[2020-07-01] MEDS ORDERED: fentaNYL (PF) 50 MCG/ML 2 ML AMP ONE (08:44)
[2020-07-01] MEDS ORDERED: LIDOCAINE 1% INJ 10MG/ML (20 ML MDV) ONE (08:44)
[2020-07-01] MEDS ORDERED: PROPOFOL 10 MG/ML 50 ML VIAL IV ONE (08:44)
--- NOTE | 2020-07-01 09:05 | P.PCN ---
Date of Procedure: 07/01/20 Procedure(s) Performed: Brief history: Patient is a pleasant 49-year-old white female scheduled for an elective upper endoscopy as well as colonoscopy as a part of evaluation of intermittent episodes of abdominal pain, abdominal bloating and change in bowel habits for the last few months duration. Procedure performed: Esophagogastroduodenoscopy with biopsy Colonoscopy with biopsy Preoperative diagnosis: Abdominal pain and change in bowel habits of 3 months duration. Anesthesia: [facility] Procedure: After informed consent was obtained from the patient was brought into the endoscopy unit and IV sedation was administered by anesthesia under continuous monitoring. Initially upper endoscopy was done. The Olympus GF 160 video endoscope was inserted inserted into the mouth and esophagus intubated without any difficulty and was gradually advanced into the stomach and duodenum and carefully examined. The bulb and second part of the duodenum appeared normal. Biopsies were done from the duodenum to rule out celiac disease. The scope was then withdrawn into the stomach adequately insufflated with air and upon careful examination the antrum mild gastritis and biopsies were done from this area. The body, cardia and fundus appeared normal. The scope was then withdrawn into the esophagus. The GE junction was located at 40 cm to the incisors. It appeared regular with a conventional erythema consistent with LA grade a reflux esophagitis. Rest of the esophagus appeared normal. Patient tolerated the procedure well. At this time the patient continued to remain sedation. Initial digital rectal examination was normal. Olympus CF 160 video colonoscope was then inserted into the rectum and gradually advanced to the cecum without any difficulty. Careful examination was performed as the scope was gradually being withdrawn. The prep was excellent. The cecum, ascending colon, transverse colon, descending colon, sigmoid colon and rectum appeared normal. Status post random biopsies to rule out collagenous/microscopic colitis. Retroflexion was performed in the rectum and no lesions were noted. Patient tolerated the procedure well. Impression: 1.Upper endoscopy revealed mild antral gastritis and LA grade A reflux esophagitis 2.Colonoscopy was essentially within normal limits with no evidence of colitis or colorectal neoplasia Recommendations: Findings of this examination were discussed with the patient as well as Her family. She was advised to follow with the biopsy results. He was advised to follow up in office in 2-3 weeks.
[2020-07-01 09:33] VITALS: BP 132/78; PULSE 70; RESP 20
== END 2020-07-01 10:20 | disposition home or self-care (01) ==
LOC: ORWHC2ENDO 07:37
PROVIDERS: ATTEND Internal Medicine Gastroenterology
DX: K29.70 Gastritis, unspecified, without bleeding (principal); K21.00 Gastro-esophageal reflux disease with esophagitis, without bleeding; R19.4 Change in bowel habit; Z91.040 Latex allergy status; Z88.2 Allergy status to sulfonamides; E78.5 Hyperlipidemia, unspecified; E07.9 Disorder of thyroid, unspecified; Z79.890 Hormone replacement therapy; Z79.899 Other long term (current) drug therapy; Z98.891 History of uterine scar from previous surgery; Z90.710 Acquired absence of both cervix and uterus; Z90.49 Acquired absence of other specified parts of digestive tract; Z98.890 Other specified postprocedural states
CPT/HCPCS: 88305; 45380; 43239; J2250; J2001; J3010; J2704

== ENCOUNTER → 2020-07-08 | Outpatient (CLI) | payer BC ==
--- NOTE | 2020-07-08 14:26 | MR ---
MR liver with and without contrast HISTORY: Abnormal CT, liver disease, K 76.9 Multiplanar multisequence and postcontrast images obtained through the liver following 9 cc Gadavist IV. Correlation to prior CT 05/26/2020 The lesion identified on CT scan within the right lobe of the liver shows T1 low, T2 bright signal, l esion measures approximately 2 cm. Centripetal rest of enhancement is noted on the questionable postc ontrast images, and enhancement with initial nodular appearance. The liver is enlarged and shows sign al drop on out of phase images. There is no dilated intra or extrahepatic biliary ducts. There is extensive motion on the exam. Hiatal hernia is noted incidentally. There is no evident pleur al effusion or ascites. Pancreas shows no mass. No retroperitoneal adenopathy. Aorta shows normal shimon iber. Kidneys are unremarkable, adrenal glands are normal. Spleen is not enlarged. There is no eviden t bowel obstruction. IMPRESSION: Findings consistent with hemangioma within the liver. Hepatic steatosis, hepatomegaly. Hi atal hernia.
== END | disposition home or self-care (01) ==
LOC: RADMRIMAIN 08:44
PROVIDERS: ATTEND Internal Medicine Gastroenterology
DX: K76.0 Fatty (change of) liver, not elsewhere classified (principal); K44.9 Diaphragmatic hernia without obstruction or gangrene
CPT/HCPCS: 74183; A9585

== ENCOUNTER → 2020-07-23 | Outpatient (CLI) | payer BC ==
--- NOTE | 2020-07-23 11:33 | MM ---
Reason for exam: follow-up at short interval from prior study. Last mammogram was performed 6 months ago. History: Patient is postmenopausal, history of other cancer, and had first child at age 34. Family history of breast cancer in maternal aunt at age 50 and breast cancer in paternal cousin at age 9. Taking estrogen for 9 years beginning at age 39. Taking other hormone for 6 months. Physical Findings: Nurse did not find any significant physical abnormalities on exam. MG 3D Diag Mammo W/Cad LT CC and MLO view(s) were taken of the left breast. Prior study comparison: January 16, 2020, bilateral MG 3d screening mammo w/cad. December 12, 2018, bilateral MG 3d screening mammo w/cad. The breast tissue is heterogeneously dense. This may lower the sensitivity of mammography. There is no discrete abnormality. Skin lesion posterior upper inner aspect. These results were verbally communicated with the patient and result sheet given to the patient on 07/23/20. ASSESSMENT: Negative, BI-RAD 1 RECOMMENDATION: Return to routine screening mammogram schedule for both breasts. Back on schedule.
== END | disposition home or self-care (01) ==
LOC: RADMAMWWP 10:46
PROVIDERS: ATTEND Obstetrics & Gynecology
DX: R92.8 Other abnormal and inconclusive findings on diagnostic imaging of breast (principal)
CPT/HCPCS: 77061; 77065

== ENCOUNTER → 2021-01-18 | Outpatient (CLI) | payer BC ==
--- NOTE | 2021-01-19 13:31 | MM ---
Reason for exam: screening (asymptomatic). Last mammogram was performed 6 months ago. History: Patient is postmenopausal, history of other cancer, and had first child at age 34. Family history of breast cancer in maternal aunt at age 50 and breast cancer in paternal cousin at age 9. Took hormonal contraceptives for 10 years. Taking estrogen for 9 years beginning at age 39. Taking progesterone. Taking other hormone for 6 months. Physical Findings: A clinical breast exam by your physician is recommended on an annual basis and results should be correlated with mammographic findings. MG 3D Screening Mammo W/Cad Bilateral CC and MLO view(s) were taken. Prior study comparison: July 23, 2020, left breast MG 3d diag mammo w/cad LT. January 16, 2020, bilateral MG 3d screening mammo w/cad. The breast tissue is heterogeneously dense. This may lower the sensitivity of mammography. ASSESSMENT: Negative, BI-RAD 1 RECOMMENDATION: Routine screening mammogram of both breasts in 1 year.
== END | disposition home or self-care (01) ==
LOC: RADMAMWWP 07:19
PROVIDERS: ATTEND Obstetrics & Gynecology
DX: Z12.31 Encounter for screening mammogram for malignant neoplasm of breast (principal)
CPT/HCPCS: 77063; 77067

== ENCOUNTER → 2022-01-19 | Outpatient (CLI) | payer BC ==
--- NOTE | 2022-01-20 07:51 | MM ---
Reason for Exam: Screening (asymptomatic). Last screening mammogram was performed 12 month(s) ago. Patient History: Menarche at age 14. First Full-Term at age 34. Late child-bearing (after 30). Left ovary removed at age 39. Right ovary removed at age 39. Hysterectomy at age 39. Postmenopausal. Other cancer. Currently using Estrogen, beginning at age 39 for 9 years. Currently using Progesterone. Patient used Hormonal Contraceptives for 10 years. Paternal cousin had breast cancer, age 50. Maternal aunt had breast cancer, age 50. Risk Values: Madison 5 year model risk: 1.3%. NCI Lifetime model risk: 12.3%. Prior Study Comparison: 01/16/2020 Bilateral Screening Mammogram, [facility]. 07/23/2020 Left Diagnostic Mammogram, [facility]. 01/18/2021 Bilateral Screening Mammogram, [facility]. Tissue Density: The breast tissue is heterogeneously dense. This may lower the sensitivity of mammography. Findings: Analyzed By CAD. There is no suspicious group of microcalcifications or new suspicious mass in either breast. Distortion is noted in her lower left breast zone A/B. Overall Assessment: Incomplete: need additional imaging evaluation, BI-RAD 0 Management: Diagnostic Mammogram of the left breast. A clinical breast exam by your physician is recommended on an annual basis and results should be correlated with mammographic findings. Electronically signed and approved by: Fahad Darling M.D. Radiologis
== END | disposition home or self-care (01) ==
LOC: RADMAMWWP 07:32
PROVIDERS: ATTEND Obstetrics & Gynecology
DX: Z12.31 Encounter for screening mammogram for malignant neoplasm of breast (principal)
CPT/HCPCS: 77063; 77067

== ENCOUNTER → 2022-01-26 | Outpatient (CLI) | payer BC ==
--- NOTE | 2022-01-26 10:40 | MM ---
Reason for Exam: Additional evaluation requested from abnormal screening. Last screening mammogram was performed less than 1 month ago. Patient History: Menarche at age 14. First Full-Term at age 34. Late child-bearing (after 30). Left ovary removed at age 39. Right ovary removed at age 39. Hysterectomy at age 39. Postmenopausal. Other cancer. Currently using Estrogen, beginning at age 39 for 9 years. Currently using Progesterone, starting at age 39. Patient used Hormonal Contraceptives for 10 years. Paternal cousin had breast cancer, age 50. Maternal aunt had breast cancer, age 50. Risk Values: Madison 5 year model risk: 1.3%. NCI Lifetime model risk: 12.3%. Prior Study Comparison: 12/11/2017 Bilateral Screening Mammogram, [facility]. 12/12/2018 Bilateral Screening Mammogram, [facility]. 01/16/2020 Bilateral Screening Mammogram, [facility]. 07/23/2020 Left Diagnostic Mammogram, [facility]. 01/18/2021 Bilateral Screening Mammogram, [facility]. 01/19/2022 Bilateral MG 3D screening mammo w/cad, [facility]. Tissue Density: Left: The breast tissue is heterogeneously dense. This may lower the sensitivity of mammography. Findings: Analyzed By CAD. There is no evidence for persistent distortion or mass. Overall Assessment: Negative, BI-RAD 1 Management: Screening Mammogram of both breasts in 1 year. A clinical breast exam by your physician is recommended on an annual basis and results should be correlated with mammographic findings. This exam should not preclude additional follow-up of suspicious palpable abnormalities. Results were given to the patient verbally at the time of exam. Electronically signed and approved by: Fahad Darling M.D. Radiologis
== END | disposition home or self-care (01) ==
LOC: RADMAMWWP 10:02
PROVIDERS: ATTEND Obstetrics & Gynecology
DX: R92.8 Other abnormal and inconclusive findings on diagnostic imaging of breast (principal)
CPT/HCPCS: 77061; 77065

== ENCOUNTER 2022-03-14 15:53 | Emergency (ER) | payer BC ==
[2022-03-14 16:46] VITALS: TEMP 98.7
--- NOTE | 2022-03-14 17:14 | XR ---
EXAMINATION TYPE: XR chest 2V DATE OF EXAM: 03/14/2022 COMPARISON: 06/03/2019 HISTORY: Rib pain TECHNIQUE: 2 views FINDINGS: Heart is normal. Lungs are clear of infiltrate. There are small linear density left lung ba se. There are no hilar masses. Bony thorax is intact. IMPRESSION: Subsegmental atelectasis left lung base appears new compared to old exam. Normal heart.
[2022-03-14] MEDS ORDERED: SODIUM CHLORIDE 0.9% 1,000 ML IV STA (18:05)
[2022-03-14] MEDS ORDERED: KETOROLAC 15 MG/ML 1 ML VIAL IM STA (18:05)
[2022-03-14 18:39] VITALS: BP 138/89; PULSE 64; RESP 16
[2022-03-14 18:43] LABS: Basophils # (A) 0.1 k/uL (0-0.2); Basophils % (A) 1 %; Eosinophils # (A) 0.4 k/uL (0-0.7); Eosinophils % (A) 5 %; HCT 48.3 % (34.0-46.0); HGB 15.6 gm/dL (11.4-16.0); Lymphocytes % (A) 22 %; MCH 29.1 pg (25.0-35.0); MCHC 32.3 g/dL (31.0-37.0); Mean Platelet Volume 6.6; Monocytes # (A) 0.4 k/uL (0-1.0); Monocytes % (A) 5 %; Neutrophils # (A) 5.9 k/uL (1.3-7.7); Neutrophils % (A) 66 %; Platelet Count 329 k/uL (150-450); RBC 5.37 m/uL (3.80-5.40); WBC 8.9 k/uL (3.8-10.6)
[2022-03-14 18:53] LABS: INR 0.9 (<1.2)
[2022-03-14 18:57] LABS: AST 24 U/L (14-36); African American GFR (CKD) >90 (>60 ml/min/1.73 sqM); Albumin 4.5 g/dL (3.5-5.0); Alkaline Phosphatase 94 U/L (38-126); Blood Urea Nitrogen 10 mg/dL (7-17); Carbon Dioxide 27 mmol/L (22-30); Chloride 102 mmol/L (98-107); Glucose 92 mg/dL (74-99); Non-African American GFR(CKD) 84 (>60 ml/min/1.73 sqM); Potassium 3.8 mmol/L (3.5-5.1); Total Bilirubin 0.3 mg/dL (0.2-1.3); Total Protein 8.3 g/dL (6.3-8.2)
[2022-03-14 18:58] LABS: ALT 29 U/L (4-34); Anion Gap 10 mmol/L; Calcium 9.4 mg/dL (8.4-10.2); Magnesium 1.8 mg/dL (1.6-2.3); Sodium 139 mmol/L (137-145)
[2022-03-14] MEDS ORDERED: CAPSAICIN 0.025% CREAM 60 GM TUBE TOPICAL STA (19:44)
--- NOTE | 2022-03-14 20:19 | ED ---
Chest Pain HPI - General Chief Complaint: Chest Pain Stated Complaint: L side rib pain Time Seen by Provider: 03/14/22 17:50 Source: patient Mode of arrival: ambulatory Limitations: no limitations - History of Present Illness Initial Comments: Patient is a 51-year-old female who presents to the emergency department with a chief complaint of left rib pain. Patient states she woke up this morning with pain. Pain is in the left middle ribs without radiation. Pain is worsened with inspiration and any movement. Patient took Motrin 800 with some relief. Denies fever, chills, chest pain, shortness of breath, abdominal pain, nausea, vomiting. Denies personal family history of cardiac disease. Denies current past tobacco use. - Related Data Home Medications Medication Instructions Recorded Confirmed Progesterone, Micronized 100 mg PO DAILY 06/03/19 03/14/22 [Progesterone] Triamterene/Hydrochlorothiazid 1 tab PO DAILY 06/03/19 03/14/22 [Triamterene-Hctz 37.5-25 mg Tb] Thyroid,Pork [Factory Laborer Thyroid] 30 mg PO DAILY 03/14/22 03/14/22 Previous Rx's Medication Instructions Recorded Cyclobenzaprine [Flexeril] 10 mg PO BID PRN #14 tab 03/14/22 Ketorolac [Toradol] 10 mg PO Q8HR PRN #21 tab 03/14/22 Allergies Allergy/AdvReac Type Severity Reaction Status Date / Time banana Allergy mouth and Verified 03/14/22 20:41 throat Itching kiwi Allergy mouth and Verified 03/14/22 20:41 throat Itching latex Allergy Rash/Hives Verified 03/14/22 20:41 Sulfa (Sulfonamide Allergy Rash/Hives Verified 03/14/22 20:41 Antibiotics) tree nut Allergy mouth and Verified 03/14/22 20:41 throat Itching gluten AdvReac GI UPSET Verified 03/14/22 20:41 ALL SEAFOOD Allergy Itching Uncoded 03/14/22 16:46 FRUIT WITH CHAN Allergy mouth and Uncoded 03/14/22 16:46 throat Itching Review of Systems ROS Statement: Those systems with pertinent positive or pertinent negative responses have been documented in the HPI. ROS Other: All systems not noted in ROS Statement are negative. Past Medical History Past Medical History: Thyroid Disorder Additional Past Medical History / Comment(s): having digestive issue,stomach and abdominal cramping, horomone replacement,hypoglycemia History of Any Multi-Drug Resistant Organisms: None Reported Past Surgical History: Appendectomy, Hysterectomy Past Anesthesia/Blood Transfusion Reactions: No Reported Reaction Past Psychological History: No Psychological Hx Reported Smoking Status: Never smoker Past Alcohol Use History: None Reported Past Drug Use History: None Reported - Past Family History Father Family Medical History: Diabetes Mellitus, Myocardial Infarction ([place]) Brother(s) Family Medical History: Cancer Additional Family Medical History / Comment(s): testicular cancer General Exam Limitations: no limitations General appearance: alert, in no apparent distress Head exam: Present: atraumatic, normocephalic, normal inspection Respiratory exam: Present: normal lung sounds bilaterally, chest wall tenderness (lateral middle ribs ). Absent: respiratory distress, wheezes, rales, rhonchi, stridor Cardiovascular Exam: Present: regular rate, normal rhythm, normal heart sounds, other (murmur ). Absent: diastolic murmur, rubs, gallop, clicks GI/Abdominal exam: Present: soft, normal bowel sounds. Absent: distended, tenderness, guarding, rebound, rigid Back exam: Present: normal inspection Neurological exam: Present: alert, oriented X3, CN II-XII intact Psychiatric exam: Present: normal affect, normal mood Skin exam: Present: warm, dry, intact, normal color. Absent: rash Course Vital Signs 03/14/22 03/14/22 16:44 18:39 Temperature 98.7 F Pulse Rate 72 64 Respiratory 20 16 Rate Blood Pressure 164/103 138/89 O2 Sat by Pulse 98 100 Oximetry Chest Pain [facility] This is a 51-year-old female presenting with left rib pain. Thorough history and examination were performed. She is well-appearing and in no apparent distress. Pain is reproducible with palpation of the left lateral middle ribs. No chest pain or shortness of breath. Full cardiac workup was initiated. EKG shows sinus bradycardia without ST-T segment or T-wave abnormalities. Laboratory studies obtained. Troponin and d- dimer are within normal limits. Chest x-ray shows subsegmental atelectasis of the left lung base. Patient given Toradol which improved pain significantly. Patient states she is having intermittent spasms of pain. This does not appear cardiac in nature. Possible muscle strain. She'll be discharged with Toradol and Flexeril for pain and muscle spasm. Patient has spirometer at home and is instructed to use hourly to prevent pneumonia. I do want her to follow up with cardiology regarding possible murmur heard on physical exam. Return parameters discussed. Patient verbalizes understanding. Dr. Payne is my attending. Disposition Clinical Impression: Rib pain on left side, Muscle strain of chest wall Disposition: HOME SELF-CARE Condition: Good Instructions (If sedation given, give patient instructions): Muscle Strain (ED) Additional Instructions: Take medication as directed. Do not drink alcohol or operate machinery while taking Flexeril as it can make you sleepy. Apply ice or warm compress. Use spirometer once per hour until pain improves significantly and you feel that you are able to take a deep breath. Follow-up with primary care provider in one to 2 days. Return to the emergency department if you experience new, concerning, or worsening symptoms. Prescriptions: Cyclobenzaprine [Flexeril] 10 mg PO BID PRN #14 tab PRN Reason: Muscle Spasm Ketorolac [Toradol] 10 mg PO Q8HR PRN #21 tab PRN Reason: Pain Is patient prescribed a controlled substance at d/c from ED?: No Referrals: Scarlett Braxton MD [Primary Care Provider] - 1-2 days Time of Disposition: 20:19
== END 2022-03-14 20:42 | disposition home or self-care (01) ==
LOC: EC 15:53
DX: S29.011A Strain of muscle and tendon of front wall of thorax, initial encounter (principal); R00.1 Bradycardia, unspecified; E07.9 Disorder of thyroid, unspecified; Z20.822 Contact with and (suspected) exposure to COVID-19; Z91.018 Allergy to other foods; Z91.040 Latex allergy status; Z88.2 Allergy status to sulfonamides; Z91.013 Allergy to seafood; X58.XXXA Exposure to other specified factors, initial encounter
CPT/HCPCS: 36415; 93005; 85379; 80053; 84443; 83735; 84484; 85025; 85610; 85730; 87635; 71046; 99284; 96360; 96372; J1885

== ENCOUNTER 2023-03-30 14:34 | Emergency (ER) | payer BC ==
[2023-03-30 15:20] VITALS: RESP 18; TEMP 97.9
[2023-03-30] MEDS ORDERED: SODIUM CHLORIDE 0.9% 500 ML 500 ML IV STA (15:34)
--- NOTE | 2023-03-30 15:37 | ED ---
General Adult HPI - General Chief complaint: Seizure Stated complaint: syncope Time Seen by Provider: 03/30/23 15:11 Source: EMS Mode of arrival: EMS Limitations: no limitations - History of Present Illness Initial comments: This patient is a 52-year-old woman who presents to evaluation of an episode when she passed out. The patient states that she donated plasma a couple of hours ago. She then was going to work. She picked up a salad and was going to eat this at her desk when she noticed she felt a "hot flash" coming on. She states that she put her head down and then the next thing she remembers coworker was rubbing her back and calling her name to wake her up. It was reported that she had a little bit of shaking. There was no fall or injury. No loss of continence. There was no description of post ictal period. I was reported that the patient's blood pressure was measured on scene and was low. The patient states that she is feeling pretty well now, back at baseline. -: minutes(s) Severity scale (1-10): 0 Improves with: none Worsens with: none Treatments Prior to Arrival: none - Related Data Home Medications Medication Instructions Recorded Confirmed Progesterone, Micronized 100 mg PO DAILY 06/03/19 03/14/22 [Progesterone] Triamterene/Hydrochlorothiazid 1 tab PO DAILY 06/03/19 03/14/22 [Triamterene-Hctz 37.5-25 mg Tb] Thyroid,Pork [Stock Checker Thyroid] 30 mg PO DAILY 03/14/22 03/14/22 Previous Rx's Medication Instructions Recorded Cyclobenzaprine [Flexeril] 10 mg PO BID PRN #14 tab 03/14/22 Ketorolac [Toradol] 10 mg PO Q8HR PRN #21 tab 03/14/22 Allergies Allergy/AdvReac Type Severity Reaction Status Date / Time banana Allergy mouth and Verified 03/30/23 15:20 throat Itching kiwi Allergy mouth and Verified 03/30/23 15:20 throat Itching latex Allergy Rash/Hives Verified 03/30/23 15:20 Sulfa (Sulfonamide Allergy Rash/Hives Verified 03/30/23 15:20 Antibiotics) tree nut Allergy mouth and Verified 03/30/23 15:20 throat Itching gluten AdvReac GI UPSET Verified 03/30/23 15:20 ALL SEAFOOD Allergy Itching Uncoded 03/30/23 15:20 FRUIT WITH CHAN Allergy mouth and Uncoded 03/30/23 15:20 throat Itching Review of Systems ROS Statement: Those systems with pertinent positive or pertinent negative responses have been documented in the HPI. ROS Other: All systems not noted in ROS Statement are negative. Constitutional: Denies: fever, chills, weakness Eyes: Denies: vision change Respiratory: Denies: cough, dyspnea Cardiovascular: Reports: syncope. Denies: chest pain, palpitations, orthopnea, edema Gastrointestinal: Denies: abdominal pain, nausea, vomiting, diarrhea, constipation, melena, hematochezia Genitourinary: Denies: dysuria, hematuria Musculoskeletal: Denies: back pain Skin: Denies: rash Neurological: Denies: headache, weakness, numbness Past Medical History Past Medical History: Thyroid Disorder Additional Past Medical History / Comment(s): having digestive issue,stomach and abdominal cramping, horomone replacement,hypoglycemia History of Any Multi-Drug Resistant Organisms: None Reported Past Surgical History: Appendectomy, Hysterectomy Past Anesthesia/Blood Transfusion Reactions: No Reported Reaction Past Psychological History: No Psychological Hx Reported Smoking Status: Never smoker Past Alcohol Use History: Rare Past Drug Use History: None Reported - Past Family History Father Family Medical History: Diabetes Mellitus, Myocardial Infarction (SD) Brother(s) Family Medical History: Cancer Additional Family Medical History / Comment(s): testicular cancer General Exam Limitations: no limitations General appearance: alert, in no apparent distress Head exam: Present: atraumatic, normocephalic Eye exam: Present: normal appearance. Absent: scleral icterus, conjunctival injection Neck exam: Present: normal inspection Respiratory exam: Present: normal lung sounds bilaterally. Absent: respiratory distress, wheezes, rales, rhonchi, stridor Cardiovascular Exam: Present: regular rate, normal rhythm, normal heart sounds. Absent: systolic murmur, diastolic murmur, rubs, gallop GI/Abdominal exam: Present: soft. Absent: distended, tenderness, guarding, rebound, rigid, mass Extremities exam: Present: normal inspection, normal capillary refill. Absent: pedal edema, calf tenderness Back exam: Present: normal inspection Neurological exam: Present: alert, oriented X3, CN II-XII intact. Absent: motor sensory deficit Skin exam: Present: warm, dry, intact, normal color. Absent: rash Course Vital Signs 03/30/23 03/30/23 15:14 16:47 Temperature 97.9 F Pulse Rate 76 70 Respiratory 18 18 Rate Blood Pressure 106/65 108/90 O2 Sat by Pulse 99 96 Oximetry EKG Findings - EKG Results: EKG: interpreted by RAMAD, sinus rhythm (Rate 76 bpm), normal axis, normal QRS Medical Decision Making - Medical Decision Making Was pt. sent in by a medical professional or institution (, PA, NUCLEAR PLANT TECHNICAL ADVISOR, urgent care, hospital, or prison...) When possible be specific @ -[No] Did you speak to anyone other than the patient for history (EMS, parent, family, police, friend...)? What history was obtained from this source @ -[No] Did you review nursing and triage notes (agree or disagree)? Why? @ -[I reviewed and agree with nursing and triage notes] Were old charts reviewed (outside hosp., previous admission, EMS record, old EKG, old radiological studies, urgent care reports/EKG's, prison records)? Report findings @ -[No old charts were reviewed] Differential Diagnosis (chest pain, altered mental status, abdominal pain women, abdominal pain men, vaginal bleeding, weakness, fever, dyspnea, syncope, headache, dizziness, GI bleed, back pain, seizure, CVA, palpatations, mental health, musculoskeletal)? @ -[Differential Syncope: Valvular disease, hypertrophic cardiomyopathy, pulmonary embolism, tamponade, tachycardia, bradycardia, SD, hypovolemia, hemorrhage, dissection, anemia, intracranial hemorrhage, seizure, hypoglycemia, carbon monoxide poisoning, this is not meant to be an all-inclusive list. EKG interpreted by me (3pts min.). @ -[I interpreted as above X-rays interpreted by me (1pt min.). @ -[None done] CT interpreted by me (1pt min.). @ -[None done] U/S interpreted by me (1pt. min.). @ -[None done] What testing was considered but not performed or refused? (CT, X-rays, U/S, labs)? Why? @ -[None] What meds were considered but not given or refused? Why? @ -[None] Did you discuss the management of the patient with other professionals (professionals i.e. , PA, NUCLEAR PLANT TECHNICAL ADVISOR, lab, RT, psych nurse, neonatal social worker, keller machine operator, teacher, medical laboratory technical officer, nurse case manager)? Give summary @ -[No] Was smoking cessation discussed for >3mins.? @ -[No] Was critical care preformed (if so, how long)? @ -[No] Were there social determinants of health that impacted care today? How? (Homelessness, low income, unemployed, alcoholism, drug addiction, transportation, low edu. Level, literacy, decrease access to med. care, fdc, rehab)? @ -[No] Was there de-escalation of care discussed even if they declined (Discuss DNR or withdrawal of care, Hospice)? DNR status @ -[No] What co-morbidities impacted this encounter? (DM, HTN, Smoking, COPD, CAD, Cancer, CVA, ARF, Chemo, Hep., AIDS, mental health diagnosis, sleep apnea, morbid obesity)? @ -[None] Was patient admitted / discharged? Hospital course, mention meds given and route, prescriptions, significant lab abnormalities, going to OR and other pertinent info. @ -['s patient is 52-year-old woman presenting after syncopal episode. The patient's physical exam essentially normal. The patient's workup also within normal limits. We discussed appropriate further care and and follow-up including return parameters. Undiagnosed new problem with uncertain prognosis? @ -[No] Drug Therapy requiring intensive monitoring for toxicity (Heparin, Nitro, Insulin, Cardizem)? @ -[No] Were any procedures done? @ -[No] Diagnosis/symptom? @ -[Acute syncopal episode Acute, or Chronic, or Acute on Chronic? @ -[default] Uncomplicated (without systemic symptoms) or Complicated (systemic symptoms)? @ -[Unconjugated Side effects of treatment? @ -[No] Exacerbation, Progression, or Severe Exacerbation? @ -[No] Poses a threat to life or bodily function? How? (Chest pain, USA, SD, pneumonia, PE, COPD, DKA, ARF, appy, cholecystitis, CVA, Diverticulitis, Homicidal, Suicidal, threat to staff... and all critical care pts) @ -[No] - Lab Data Result diagrams: 03/30/23 16:05 09/21/23 16:05 Lab Results 03/30/23 03/30/23 Range/Units 16:05 16:05 WBC 14.8 H (3.8-10.6) k/uL RBC 5.40 (3.80-5.40) m/uL Hgb 16.2 H (11.4-16.0) gm/dL Hct 48.4 H (34.0-46.0) % MCV 89.5 (80.0-100.0) fL MCH 30.0 (25.0-35.0) pg MCHC 33.5 (31.0-37.0) g/dL RDW 13.0 (11.5-15.5) % Plt Count 287 (150-450) k/uL MPV 6.9 Neutrophils % 84 % Lymphocytes % 11 % Monocytes % 2 % Eosinophils % 2 % Basophils % 0 % Neutrophils # 12.4 H (1.3-7.7) k/uL Lymphocytes # 1.6 (1.0-4.8) k/uL Monocytes # 0.4 (0-1.0) k/uL Eosinophils # 0.4 (0-0.7) k/uL Basophils # 0.0 (0-0.2) k/uL Sodium 137 (137-145) mmol/L Potassium 3.5 (3.5-5.1) mmol/L Chloride 108 H (98-107) mmol/L Carbon Dioxide 24 (22-30) mmol/L Anion Gap 5 mmol/L BUN 11 (7-17) mg/dL Creatinine 0.85 (0.52-1.04) mg/dL Est GFR (CKD-EPI)AfAm >90 (>60 ml/min/1.73 sqM) Est GFR (CKD-EPI)NonAf 80 (>60 ml/min/1.73 sqM) Glucose 162 H (74-99) mg/dL Calcium 7.9 L (8.4-10.2) mg/dL Magnesium 1.9 (1.6-2.3) mg/dL Total Bilirubin 0.5 (0.2-1.3) mg/dL AST 31 (14-36) U/L ALT 33 (4-34) U/L Alkaline Phosphatase 66 (38-126) U/L Total Protein 6.1 L (6.3-8.2) g/dL Albumin 3.1 L (3.5-5.0) g/dL Disposition Clinical Impression: Syncope Disposition: HOME SELF-CARE Condition: Good Instructions (If sedation given, give patient instructions): Syncope (ED) Is patient prescribed a controlled substance at d/c from ED?: No Referrals: Scarlett Braxton MD [Primary Care Provider] - 1-2 days
[2023-03-30 16:19] LABS: Basophils % (A) 0 %; Eosinophils # (A) 0.4 k/uL (0-0.7); Eosinophils % (A) 2 %; HCT 48.4 % (34.0-46.0); HGB 16.2 gm/dL (11.4-16.0); Lymphocytes # (A) 1.6 k/uL (1.0-4.8); Lymphocytes % (A) 11 %; MCHC 33.5 g/dL (31.0-37.0); MCV 89.5 fL (80.0-100.0); Mean Platelet Volume 6.9; Monocytes # (A) 0.4 k/uL (0-1.0); Monocytes % (A) 2 %; Neutrophils # (A) 12.4 k/uL (1.3-7.7); Neutrophils % (A) 84 %; Platelet Count 287 k/uL (150-450); WBC 14.8 k/uL (3.8-10.6)
[2023-03-30 16:31] LABS: ALT 33 U/L (4-34); AST 31 U/L (14-36); African American GFR (CKD) >90 (>60 ml/min/1.73 sqM); Albumin 3.1 g/dL (3.5-5.0); Alkaline Phosphatase 66 U/L (38-126); Anion Gap 5 mmol/L; Blood Urea Nitrogen 11 mg/dL (7-17); Calcium 7.9 mg/dL (8.4-10.2); Carbon Dioxide 24 mmol/L (22-30); Chloride 108 mmol/L (98-107); Glucose 162 mg/dL (74-99); Magnesium 1.9 mg/dL (1.6-2.3); Non-African American GFR(CKD) 80 (>60 ml/min/1.73 sqM); Potassium 3.5 mmol/L (3.5-5.1); Sodium 137 mmol/L (137-145); Total Bilirubin 0.5 mg/dL (0.2-1.3); Total Protein 6.1 g/dL (6.3-8.2)
[2023-03-30 16:50] VITALS: BP 108/90; PULSE 70
== END 2023-03-30 16:51 | disposition home or self-care (01) ==
LOC: EC 14:34
DX: R55 Syncope and collapse (principal); E07.9 Disorder of thyroid, unspecified; Z88.2 Allergy status to sulfonamides; Z91.040 Latex allergy status; Z91.018 Allergy to other foods; Z91.013 Allergy to seafood; Z88.8 Allergy status to other drugs, medicaments and biological substances; Z79.890 Hormone replacement therapy
CPT/HCPCS: 36415; 80053; 83735; 85025; 93005; 99285

== ENCOUNTER → 2023-11-30 | Outpatient (CLI) | payer BC ==
[2023-11-30 14:40] LABS: Basophils # (A) 0.07 X 10*3/uL (0.00-0.10); Basophils % (A) 1.1 %; Eosinophils # (A) 0.27 X 10*3/uL (0.04-0.35); Eosinophils % (A) 4.2 %; HCT 45.1 % (37.2-46.3); Lymphocytes # (A) 1.64 X 10*3/uL (0.90-5.00); Lymphocytes % (A) 25.5 %; MCH 29.5 pg (27.0-32.0); MCHC 33.3 g/dL (32.0-37.0); MCV 88.8 FL (80.0-97.0); Mean Platelet Volume 9.3 FL (9.5-12.2); Monocytes # (A) 0.44 X 10*3/uL (0.20-1.00); Monocytes % (A) 6.8 %; NRBC Per 100 WBC 0 X 10*3/uL (0.00-0.01); Neutrophils % (A) 62.2 %; Platelet Count 318 X 10*3/uL (140-440); RBC 5.08 X 10*6/uL (4.10-5.20); RDW 12.4 % (11.5-14.5); WBC 6.43 X 10*3/uL (4.50-10.00)
[2023-11-30 15:26] LABS: ALT 40 U/L (8-44); AST 22 U/L (13-35); Albumin 4.3 g/dL (3.8-4.9); Albumin/Globulin Ratio 1.34 Ratio (1.60-3.17); Alkaline Phosphatase 102 U/L (41-126); BUN/Creat Ratio 14.33 Ratio (12.00-20.00); Blood Urea Nitrogen 8.6 mg/dL (9.0-27.0); Calcium 9.8 mg/dL (8.7-10.3); Carbon Dioxide 27.6 mmol/L (21.6-31.8); Chloride 105 mmol/L (96-109); Creatine Kinase 148 U/L (26-186); Globulin 3.2 g/dL (1.6-3.3); Glucose 102 mg/dL (70-110); Potassium 3.7 mmol/L (3.5-5.5); Rheumatoid Factor, Qnt <15 IU/mL (0-15); Sodium 141 mmol/L (135-145); T4, Free (Free Thyroxine) 0.89 ng/dL (0.80-1.80); Total Bilirubin 0.4 mg/dL (0.3-1.2); Total Protein 7.5 g/dL (6.2-8.2); Uric Acid 5.7 mg/dL (2.9-7.7)
[2023-11-30 15:57] LABS: Erythrocyte Sedimentation Rate 26 mm/Hr (0-30)
[2023-11-30 16:35] LABS: Cyclic Citrullinated Pep IgG Positive (Negative); DNA Double-Stranded Negative (Negative)
== END | disposition home or self-care (01) ==
LOC: LABWHC1 10:32
PROVIDERS: ATTEND Family Medicine
DX: M25.541 Pain in joints of right hand (principal); M25.542 Pain in joints of left hand; E03.9 Hypothyroidism, unspecified
CPT/HCPCS: 36415; 80053; 82550; 84439; 84443; 84550; 85025; 85652; 86038; 86140; 86200; 86225; 86431; 86618

== ENCOUNTER → 2024-01-03 | Outpatient (CLI) | payer BC ==
--- NOTE | 2024-01-03 19:29 | MR ---
EXAMINATION TYPE: MR brain wo/w con DATE OF EXAM: 01/03/2024 COMPARISON: NONE HISTORY: 53-year-old female G43.909, unspecified migraine, not intractable, Increasing HOWE TECHNIQUE: Multiplanar, multisequence images of the brain and brainstem were acquired before and aft er administration of 9 mL IV Gadavist. Diffusion weighted imaging is performed. FINDINGS: No evidence for acute infarction, hemorrhage, mass, mass effect, midline shift, herniation, effacemen t of basal cisterns, or extra-axial fluid collection. There is a tiny 4 mm low signal intensity focus in the subcortical white matter region anterior left frontal lobe that shows susceptibility artifact on gradient sequence. No associated enhancement. The ventricles and sulci are age-appropriate. Major intracranial flow voids are intact. T2/FLAIR weighted sequences show no white matter signal abnormality. Midline structures demonstrate normal morphology. The craniocervical junction is normal. There is a lobulated heterogeneously enhancing area measuring 1.8 cm AP by 9 mm wide by 2.3 cm cranio caudal involving the anterior margin of the left temporalis musculature located just above and deep t o the zygomatic arch. Internal rounded low signal intensity areas are also present here. Post contrast images otherwise demonstrate no evidence of pathologic enhancement. Dural venous sinus es are patent. Mild to moderate mucosal thickening throughout the ethmoid air cells. Globes are intact. IMPRESSION: 1. Tiny 4 mm focus of susceptibility artifact in the left frontal lobe could represent a nonspecific dystrophic calcification, small cavernoma, or focus of old microbleed. No acute intracranial abnormal ity seen. 2. No white matter signal changes related to chronic migraines. 3. A lobulated, heterogeneously enhancing lesion within the anterior aspect of the left temporalis mu scle just above and deep to the left zygomatic arch. There may be some internal calcifications. Consi henrik a vascular malformation or hemangioma. Correlate for any focal pain or palpable abnormality. Six- month follow-up MRI can be performed.
== END ==
LOC: RADMRIMAIN 08:02
PROVIDERS: ATTEND Family Medicine
DX: G43.909 Migraine, unspecified, not intractable, without status migrainosus (principal)
CPT/HCPCS: 70553; A9585

== ENCOUNTER → 2024-01-29 | Outpatient (CLI) | payer BC ==
--- NOTE | 2024-01-30 09:02 | MM ---
Reason for Exam: Screening (asymptomatic). Last screening mammogram was performed 12 month(s) ago. Patient History: Menarche at age 14. First Full-Term at age 34. Late child-bearing (after 32). Left ovary removed at age 39. Right ovary removed at age 39. Hysterectomy at age 39. Postmenopausal. Currently using Estrogen, beginning at age 39 for 9 years. Currently using Progesterone, starting at age 39. Patient used Hormonal Contraceptives for 10 years. Paternal cousin had breast cancer, age 50. Maternal aunt had breast cancer, age 50. Risk Values: Madison 5 year model risk: 1.4%. NCI Lifetime model risk: 12.0%. Prior Study Comparison: 01/19/2022 Bilateral MG 3D screening mammo w/cad, [facility]. 01/26/2022 Left MG 3D work up w/cad LT, [facility]. 01/27/2023 Bilateral MG 3D screening mammo w/cad, [facility]. Tissue Density: The breasts are heterogeneously dense, which may obscure small masses. Findings: Analyzed By CAD. There is no suspicious group of microcalcifications or new suspicious mass in either breast. Benign calcifications. Overall Assessment: Benign, BI-RAD 2 Management: Screening Mammogram of both breasts in 1 year. . Patient should continue monthly self-breast exams. A clinical breast exam by your physician is recommended on an annual basis. This exam should not preclude additional follow-up of suspicious palpable abnormalities. Note on Madison scores and lifetime risk: 1. A Madison score greater than 3% is considered moderate risk. If this is the case, consider specialist referral to assess eligibility for a risk reducing agent. 2. If overall lifetime risk for the development of breast cancer is 20% or higher, the patient may qualify for future screening with alternating mammogram and breast MRI. Electronically signed and approved by: Gregg Russell M.D. Radiologis
== END | disposition home or self-care (01) ==
LOC: RADMAMWWP 07:43
PROVIDERS: ATTEND Obstetrics & Gynecology
DX: Z12.31 Encounter for screening mammogram for malignant neoplasm of breast (principal); Z78.0 Asymptomatic menopausal state; Z80.3 Family history of malignant neoplasm of breast; R92.333 Mammographic heterogeneous density, bilateral breasts
CPT/HCPCS: 77063; 77067

== ENCOUNTER → 2024-03-12 | Outpatient (CLI) | payer BC ==
--- NOTE | 2024-03-12 11:39 | XR ---
EXAMINATION TYPE: XR hand complete bilateral DATE OF EXAM: 03/12/2024 COMPARISON: NONE HISTORY: Pain TECHNIQUE: Three views are submitted. FINDINGS: The osseous structures are intact. Severe arthropathy at the DIP joint fifth digit right hand. Cystic geode scaphoid on the right. Mineralization maintained. Moderate to severe arthropathy second, third and fifth DIP joints left hand. No erosive changes. Mine ralization maintained. No acute fracture or dislocation. IMPRESSION: 1. 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 Favor osteoarthrit is
== END | disposition home or self-care (01) ==
LOC: RADXRMAIN 10:51
PROVIDERS: ATTEND Family Medicine
DX: M19.041 Primary osteoarthritis, right hand (principal); M19.042 Primary osteoarthritis, left hand

== ENCOUNTER → 2024-06-04 | Outpatient (CLI) | payer BC ==
--- NOTE | 2024-06-04 15:48 | US ---
EXAMINATION TYPE: US thyroid st tissue head/neck DATE OF EXAM: 06/04/2024 COMPARISON: NONE CLINICAL INDICATION: Female, 53 years old with history of THYROID ENLARGED E049; On thyroid medicatio ns; Swelling in neck that started a few months ago - no injury, illness, or relevant history TECHNIQUE: Grayscale and color Doppler imaging of the thyroid gland. FINDINGS: GLAND SIZE: Right Lobe: 3.9 x 1.0 x 1.0 cm Overall Parenchyma: homogeneous Left Lobe: 3.3 x 0.9 x 1.0 cm Overall Parenchyma: homogeneous Isthmus Thickness: 0.1 cm NODULES RIGHT: # of nodules measured on right: 0 LEFT: # of nodules measured on left: 0 ISTHMUS: # of nodules measured in the isthmus: 0 Bilateral neck scanned, no evidence of lymphadenopathy. Thyroid is not enlarged. IMPRESSION: Unremarkable thyroid ultrasound without discrete nodule. [facility], , 06/04/2024 3:45 PM
== END | disposition home or self-care (01) ==
LOC: RADUSWWP 15:20
PROVIDERS: ATTEND Obstetrics & Gynecology
DX: E04.9 Nontoxic goiter, unspecified (principal)
CPT/HCPCS: 76536

== ENCOUNTER → 2025-01-29 | Outpatient (CLI) | payer BC ==
--- NOTE | 2025-01-29 11:34 | MM ---
Reason for Exam: Screening (asymptomatic). Last screening mammogram was performed 12 month(s) ago. Patient History: Menarche at age 14. First Full-Term at age 34. Late child-bearing (after 32). Left ovary removed at age 39. Right ovary removed at age 39. Hysterectomy at age 39. Postmenopausal. Currently using Estrogen, beginning at age 39 for 9 years. Currently using Progesterone, starting at age 39. Patient used Hormonal Contraceptives for 10 years. Paternal cousin had breast cancer, age 50. Maternal aunt had breast cancer, age 50. Risk Values: Madison 5 year model risk: 1.5%. NCI Lifetime model risk: 11.8%. Prior Study Comparison: 01/26/2022 Left MG 3D work up w/cad , [facility]. 01/27/2023 Bilateral MG 3D screening mammo w/cad, [facility]. 01/29/2024 Bilateral MG 3D screening mammo w/cad, [facility]. Tissue Density: The breasts are heterogeneously dense, which may obscure small masses. Findings: Analyzed By CAD. Right breast: There is no suspicious group of microcalcifications or new suspicious mass. Left breast: There is no suspicious group of microcalcifications or new suspicious mass. Overall Assessment: Negative, BI-RAD 1 Management: Screening Mammogram of both breasts in [address] [facility] will attempt to contact patient to return for supplemental views and ultrasound if indicated. Patient should continue monthly self-breast exams. A clinical breast exam by your physician is recommended on an annual basis. This exam should not preclude additional follow-up of suspicious palpable abnormalities. Note on Madison scores and lifetime risk: 1. A Madison score greater than 3% is considered moderate risk. If this is the case, consider specialist referral to assess eligibility for a risk reducing agent. 2. If overall lifetime risk for the development of breast cancer is 20% or higher, the patient may qualify for future screening with alternating mammogram and breast MRI. [facility], , 01/29/2025 11:14 AM. Electronically signed and approved by: Santiago Thompson DO
== END | disposition home or self-care (01) ==
LOC: RADMAMWWP 08:16
PROVIDERS: ATTEND Obstetrics & Gynecology
DX: Z12.31 Encounter for screening mammogram for malignant neoplasm of breast (principal); R92.333 Mammographic heterogeneous density, bilateral breasts; Z78.0 Asymptomatic menopausal state; Z80.3 Family history of malignant neoplasm of breast; Z92.0 Personal history of contraception
CPT/HCPCS: 77063; 77067